=== PATIENT | male | born 1965 | race Caucasian/White ===

== ENCOUNTER → 2021-06-09 | Outpatient (CLI) | payer BC ==
[~2021-06-09] MED LIST: CEPHALEXIN500 M1 PO; NO HOME MEDICATIONS; VICODIN 5/5001 UDTAB PO
== END ==
LOC: COL.RAD 12:23
DX: M47.816 Spondylosis without myelopathy or radiculopathy, lumbar region (principal); M48.07 Spinal stenosis, lumbosacral region; M51.36 Other intervertebral disc degeneration, lumbar region; M40.46 Postural lordosis, lumbar region

== ENCOUNTER → 2021-06-20 | Outpatient (CLI) | payer BC ==
[~2021-06-20] VITALS: Ht 170.2 cm; Wt 71.9 kg
[2021-06-20 12:57] VITALS: BP 135/89; PULSE 77; TEMP 98.1
[2021-06-20 13:45] VITALS: BP 141/89; PULSE 82
== END ==
LOC: COL.RAD 12:42
DX: M51.16 Intervertebral disc disorders with radiculopathy, lumbar region (principal); M48.061 Spinal stenosis, lumbar region without neurogenic claudication
CPT/HCPCS: J3301

== ENCOUNTER → 2023-11-16 | Outpatient (CLI) | payer OTHER | LOC: COL.RAD 13:37 | DX: K40.90 Unilateral inguinal hernia, without obstruction or gangrene, not specified as recurrent (principal) ==